=== PATIENT | female | born 1995 | race Caucasian/White ===

== ENCOUNTER 2019-08-25 12:07 | Emergency (ER) | payer OTHER, SELFPAY ==
[2019-08-25 12:18] VITALS: BP 120/67; PULSE 72; RESP 20; TEMP 36.9; O2SAT 100
--- NOTE | 2019-08-25 12:48 | ED.URI ---
HPI - URI/Sore Throat General Chief Complaint: Upper Respiratory Infection Stated Complaint: cough/sore throat/body aches Time Seen by Provider: 08/25/19 12:48 Source: patient and RN notes reviewed Mode of arrival: ambulatory Limitations: no limitations History of Present Illness HPI Narrative: 23-year-old female with history of asthma presents with fatigue, cough, fever, scratchy throat, nasal drainage, sinus pressure, body aches that started last night. Reports her live-in partner has influenza a and B. elicited complaint: cough Related Data Home Medications Medication Instructions Recorded Confirmed ProAir HFA 08/25/19 norgestimate-ethinyl estradiol tablet 08/25/19 [Tri-Sprintec (28)] Allergies Allergy/AdvReac Type Severity Reaction Status Date / Time amoxicillin Allergy Unknown Verified 08/23/15 18:38 clavulanic acid Allergy Unknown Verified 08/23/15 18:38 Penicillins Allergy Unknown Verified 08/23/15 18:38 Review of Systems Review of Systems: Narrative: CONSTITUTIONAL: Reports malaise, chills, sweats, fever. EYES: Denies visual changes, redness, or discharge. ENT: Reports rhinorrhea, congestion, and sore throat. Denies sinus pain CARDIOVASCULAR: Denies chest pain, palpitations, or edema. RESPIRATORY: Reports cough. Denies dyspnea. GASTROINTESTINAL: Denies abdominal pain, nausea, vomiting, diarrhea SKIN: Denies rash or itching. MUSCULOSKELETAL: Reports myalgia. NEUROLOGIC: Reports headache. All systems reviewed & are unremarkable except as noted in HPI and below PMFSH Comments At time of signature, agree with nursing past medical, surgical, social and family history. There is no relevant family history pertinent to the presenting complaint Exam Narrative: Exam Narrative: GENERAL: Well-appearing, well-nourished, and in no acute distress. HEAD: Normocephalic, atraumatic. EYES: PERRLA, conjunctivae clear, and EOMI. ENT: Nares clear, turbinates erythematous, clear discharge. Mucous membranes moist. TM pearly mg with dull light reflex bilaterally; no tragal tenderness. Oropharynx not erythematous without lesions. Tonsils not enlarged and without exudate, no drooling, no hoarseness, no trismus. NECK: Supple. No lymphadenopathy CHEST: Clear to auscultation, breath sounds equal. No wheezing, rhonchi, rales, or stridor. No respiratory distress, speaks in full sentences. HEART: Regular rate and rhythm. No murmur heard. Normal peripheral pulses. SKIN: Warm, dry, no rash. NEURO: Alert and oriented x3. PSYCH: Normal mood and affect Course Course Emergency Course: Patient is aware of diagnosis, understands and agrees to treatment plan. Anticipatory guidance given. Patient agrees to follow-up as directed and is aware of reasons to seek care at the emergency department. Portions of this record may have been created with voice recognition software Vital Signs Vital signs: Vital Signs Temperature 98.4 F 08/25/19 12:18 Pulse Rate 72 08/25/19 12:18 Respiratory Rate 20 08/25/19 12:18 Blood Pressure 120/67 08/25/19 12:18 Pulse Oximetry 100 08/25/19 12:18 Temperature 98.4 F 08/25/19 12:18 Pulse Rate 72 08/25/19 12:18 Respiratory Rate 20 08/25/19 12:18 Blood Pressure 120/67 08/25/19 12:18 Pulse Oximetry 100 08/25/19 12:18 Reviewed. MDM - URI/Sore Throat MDM Narrative Medical decision making narrative: Differential diagnosis considered: Strep pharyngitis, allergic rhinitis, upper respiratory tract infection, sinusitis, rhinosinusitis, nasopharyngitis. viral pharyngitis, otitis media, otitis externa, pneumonia, bronchitis, viral cough syndrome, viral syndrome, and influenza. Exam findings show no acute concerns or changes; patient is non-toxic appearing and is in no distress. Patient is appropriate for outpatient treatment and follow-up. Lab Data Attestation: I reviewed the patient's lab results. Labs: Influenza A Screen Negative Reference Range: Negative
== END 2019-08-25 13:05 | disposition home or self-care (01) ==
PROVIDERS: Emergency Provider Nurse Practitioner
DX: B34.9 Viral infection, unspecified (principal); J45.909 Unspecified asthma, uncomplicated; Z20.828 Contact with and (suspected) exposure to other viral communicable diseases
CPT/HCPCS: 87804; 99213; G0463

== ENCOUNTER 2019-08-28 16:30 | Emergency (ER) | payer OTHER, SELFPAY ==
--- NOTE | 2019-08-28 16:44 | ED.GENADULT ---
HPI - General Adult General Chief complaint: Upper Respiratory Infection Stated complaint: COLD SYMPTOMS Time Seen by Provider: 08/28/19 17:23 Source: RN notes reviewed Mode of arrival: ambulatory Limitations: no limitations History of Present Illness HPI narrative: This patient had a one-week history of a cough which is been nonproductive. She is also had yellow-green nasal drainage with postnasal drip. She was at this facility 3 days ago and tested negative for influenza, but her boyfriend did test positive for influenza and so therefore she was given a prescription for Tamiflu 75 mg 1 twice daily for 5 days. Despite that she has become worse. She has had a fever up to 100 degrees this morning is taken Tylenol which does bring it down. OTC cough medicine helps with the cough and nasal drainage. She has had no chest pain no shortness of breath. She has not had any ear pain or drainage from the ears. There is been no nausea, no vomiting, no diarrhea. She has had no hematuria, no dysuria, no pyuria. She said no other exposure to anyone with strep throat, mono, influenza, bronchitis, pneumonia that she is aware of. She has had a mild sore throat, not severe. She has had no rashes and has not been traveling. Related Data Home Medications Medication Instructions Recorded Confirmed ProAir HFA 08/25/19 norgestimate-ethinyl estradiol 1 tablet PO DAILY 08/25/19 08/28/19 [Tri-Sprintec (28)] Allergies Allergy/AdvReac Type Severity Reaction Status Date / Time amoxicillin Allergy Unknown Hives Verified 08/28/19 17:04 clavulanic acid Allergy Unknown Hives Verified 08/28/19 17:04 Penicillins Allergy Unknown Hives Verified 08/28/19 17:04 Review of Systems Review of Systems: Narrative: CONSTITUTIONAL: Denies fever, chills, or sweats. Noncontributory except as pertains to the past medical history and history the present illness. EYES: Denies visual changes, redness, or discharge. ENT: Denies rhinorrhea, congestion, sore throat, or otalgia. CARDIOVASCULAR: Denies chest pain, palpitations, or edema. RESPIRATORY: Denies cough or dyspnea. GASTROINTESTINAL: Denies abdominal pain, nausea, vomiting, or diarrhea. GENITOURINARY: Denies dysuria or hematuria. SKIN: Denies rash or itching. MUSCULOSKELETAL: Denies back pain, joint pain, or myalgia. NEUROLOGIC: Denies headache, numbness, or weakness. PSYCHIATRIC: Denies anxiety or depression. Patient PMFSH Comments At time of signature, I have reviewed and agree with nursing past medical, surgical, social, and family history.Please see nursing chart for further information. There is no relevant family history pertinent to the presenting complaint. Exam Narrative: Exam Narrative: GENERAL: Well-appearing, well-nourished, and in no acute distress. HEAD: Normocephalic, atraumatic. EYES: PERRLA and EOMI. EARS: TM's clear bilaterally and the canals are clear. NOSE: Nares have edematous mucosa line with purulent rhinorrhea and purulent postnasal drip. THROAT:Mucous membranes moist.Oropharynx normal without erythema or exudates. No adenopathy of the neck, supraclavicular, axillary, or inguinal areas. NECK: Supple. No adenopathy of the neck, supraclavicular, axillary, or inguinal areas. RESPIRATORY: No respiratory distress. Airway patent. Respirations non-labored. The lungs have rhonchi in the upper and in the midlung hernandez, but not the bases. There are no wheezes, no rales, no retractions, no use accessory muscles or respirations. Patient is not cyanotic and not dyspneic. HEART: Regular rate and rhythm. No murmur heard. Normal peripheral pulses. ABDOMEN: Soft, nontender, nondistended, normal active bowel sounds.No masses. No rebound or guarding, No organomegaly. EXTREMITIES: No clubbing/cyanosis/ edema. Normal strength & range of motion. SKIN: Warm, dry.Normal color. There are no skin lesions or skin rashes. Patient is well-nourished well-hydrated has moist mucous membranes and no tenting of the skin
[2019-08-28 16:56] VITALS: BP 116/75; PULSE 99; RESP 20; TEMP 37.7; O2SAT 100
== END 2019-08-28 17:34 | disposition home or self-care (01) ==
PROVIDERS: Emergency Provider Family Medicine
DX: J40 Bronchitis, not specified as acute or chronic (principal); J01.10 Acute frontal sinusitis, unspecified; J45.909 Unspecified asthma, uncomplicated
CPT/HCPCS: 99213; G0463

== ENCOUNTER 2023-04-07 10:11 | Emergency (ER) | payer OTHER, SELFPAY ==
--- NOTE | ~2023-04-07 | XR_ITS ---
XR ankle RT min 3V DATE: 04/07/2023 10:29 INDICATION: Injury, ankle pain TECHNIQUE: 4 views COMPARISON: None FINDINGS: Generalized soft tissue swelling. No fracture or dislocation the ankle or disruption of the ankle mortise is detected. No periosteal reaction or bone destruction. IMPRESSION: Soft tissue swelling Reviewed, dictated and finalized at location A. IMPRESSION: Soft tissue swelling
[2023-04-07 10:15] VITALS: BP 135/93; PULSE 86; RESP 18; TEMP 37.1; O2SAT 99
--- NOTE | 2023-04-07 10:18 | ED.LOWEXIN ---
HPI - Extremity Injury (Lower) General Chief Complaint: Extremity Injury, Lower Stated Complaint: Injured right ankle Time Seen by Provider: 04/07/23 10:19 Source: patient Mode of arrival: ambulatory Limitations: no limitations History of Present Illness HPI Narrative: Juvenal is a 27-year-old male patient presenting to the clinic today with complaints of a right ankle injury that she sustained last night. She reports that she rolled her ankle off the ledge and inverted it. She reports most painful when ambulating. Is painful turning ankle inward and outward. Related Data Home Medications Medication Instructions Recorded Confirmed No Home Medications 04/07/23 04/07/23 Allergies Allergy/AdvReac Type Severity Reaction Status Date / Time amoxicillin Allergy Unknown Hives Verified 04/07/23 10:24 clavulanic acid Allergy Unknown Hives Verified 04/07/23 10:24 Penicillins Allergy Unknown Hives Verified 04/07/23 10:24 Review of Systems Review of Systems: Pertinent positives per HPI. Patient denies any fever, chills, rash, headache, visual changes, dizziness, cough, runny nose, sore throat, shortness of breath, chest pain, palpitations, nausea, vomiting, diarrhea, constipation, abdominal pain, or any urinary issues. PMFSH Comments At the time of my signature, I reviewed and agree with the nursing past medical, surgical, social, and family history. There is no relevant family history pertinent to the patient complaint. Exam Narrative: General: Well-developed, obese, in no apparent distress Head: Normocephalic, atraumatic. Cardio: Regular rate and rhythm, s1 and s2 normal, no murmur appreciated. Resp: Clear to auscultation bilaterally, no rhonchi, rales, wheezing or rubs. Musculoskeletal: No deformity, tender to palpation over the medial and the lateral ankle, mild swelling and bruising noted over the lateral ankle, pain with valgus and varus testing, good strength without pain with plantar and dorsal flexion, grossly normal range of motion, muscle strength strong and equal, peripheral pulse strong, no cyanosis, normal gait and station Course Course Emergency Course: Portions of this record may have been created with voice recognition software. Level of Care: Express Care Visit Vital Signs Vital signs: Vital signs reviewed MDM - Extremity Injury (Lower) MDM Narrative Medical decision making narrative: At the time of visit patient is resting comfortably on the exam table. X-ray of the right ankle was performed and was negative for any sign of fracture or malalignment. I suspect patient has right ankle sprain. Supportive measures were discussed with the patient she voiced understanding discharge instructions agrees to treatment plan. Differential Diagnosis Differential diagnosis: Likely ankle sprain and strain and ankle fracture Imaging Data Radiologist's impression: [facility] [address] [place] [address] [place] [address] XRay Report Signed Patient: Juvenal Garcia : 1995 MR#: [id number] Age/Sex: 27 / F Acct:[id number] Loc: [facility]? ? ADM Date: 04/07/23Attending Dr: Ordering Physician: Houston Nix APRN Date of Service: 04/07/23 Procedure(s): XR ankle RT min 3V Accession Number(s): [id number] cc: Houston Nix APRN; [employer] TECHNICIAN PHYSICIAN~ XR ankle RT min 3V DATE: 04/07/2023 10:29 INDICATION: Injury, ankle pain? TECHNIQUE: 4 views? COMPARISON: None? FINDINGS: Generalized soft tissue swelling. No fracture or dislocation the ankle or disruption of the ankle mortise is detected. No periosteal reaction or bone destruction.? IMPRESSION: Soft tissue swelling? Reviewed, dictated and finalized at location A. Dictated By:? Sancho Perera MD? 04/07/23 1032 Signed By:? ? <Electronically
== END 2023-04-07 10:52 | disposition home or self-care (01) ==
PROVIDERS: Emergency Provider Nurse Practitioner Family
DX: S93.401A Sprain of unspecified ligament of right ankle, initial encounter (principal); X50.9XXA Other and unspecified overexertion or strenuous movements or postures, initial encounter; J45.909 Unspecified asthma, uncomplicated
CPT/HCPCS: 73610; 99213; G0463

== ENCOUNTER 2023-04-08 17:45 | Emergency (ER) | payer OTHER, SELFPAY ==
--- NOTE | ~2023-04-08 | XR_ITS ---
EXAMINATION: XR foot RT min 3V DATE: 04/08/2023 19:44 INDICATION: Right foot pain. Fall. TECHNIQUE: 4 views of right foot were obtained. COMPARISON: Right ankle radiographs 04/07/2023 FINDINGS: Bone alignment is normal. There is a nondisplaced avulsion fracture of anteroinferior tip o f fibula. Joint spaces are normal. IMPRESSION: 1. Nondisplaced avulsion fracture of anteroinferior tip of fibula. Reviewed, dictated and finalized at location E.
[2023-04-08 18:37] VITALS: BP 147/93; PULSE 86; RESP 18; TEMP 36.8; O2SAT 100
--- NOTE | 2023-04-08 19:34 | ED.LOWEXIN ---
HPI - Extremity Injury (Lower) General Chief Complaint: Extremity Injury, Lower Stated Complaint: ankle injury Time Seen by Provider: 04/08/23 19:18 Source: patient Mode of arrival: ambulatory Limitations: no limitations History of Present Illness HPI Narrative: This is a 27 year old female that presents to the ER for right ankle and foot pain. Reports an injury 2 days ago. Reports rolling her ankle. Reports she was evaluated for this yesterday at urgent care. Had x-rays of her ankle that was negative. She was placed in [place] wrap. She has continued to walk on the foot and has had continued swelling and pain. Denies decreased range of motion or numbness. Related Data Allergies Allergy/AdvReac Type Severity Reaction Status Date / Time amoxicillin Allergy Unknown Hives Verified 04/08/23 18:59 clavulanic acid Allergy Unknown Hives Verified 04/08/23 18:59 Penicillins Allergy Unknown Hives Verified 04/08/23 18:59 Review of Systems Review of Systems: CONSTITUTIONAL: Denies fever MUSCULOSKELETAL: Reports joint pain, and myalgia. NEUROLOGIC: Denies numbness, or weakness. All systems reviewed & are unremarkable except as noted in HPI and below PMFSH Past Medical History Medical History (Updated 04/08/23 @ 20:11 by Katerina Can PA-C) No active medical problems Social History Social History (Updated 04/08/23 @ 19:36 by Katerina Can PA-C) Smoking status: Never smoker Exam Narrative: GENERAL: Well-appearing, well-nourished, and in no acute distress. HEAD: Normocephalic, atraumatic. EYES: EOMI. EXTREMITIES: Normal range of motion. Mild edema about the right foot and ankle. Normal sensation. Normal capillary refill. Normal DP pulses SKIN: Warm, dry, no rash. NEURO: No focal deficits. Alert and oriented x3. PSYCH: Normal mood and affect Course Course Emergency Course: Patient was updated on work-up and agrees with plan of care Vital Signs Vital signs: Vital Signs Temperature 98.2 F 04/08/23 18:37 Pulse Rate 86 04/08/23 18:37 Respiratory Rate 18 04/08/23 18:37 Blood Pressure 147/93 H 04/08/23 18:37 Pulse Oximetry 100 04/08/23 18:37 Oxygen Delivery Room Air 04/08/23 18:37 Temperature 98.2 F 04/08/23 18:37 Pulse Rate 86 04/08/23 18:37 Respiratory Rate 18 04/08/23 18:37 Blood Pressure 147/93 H 04/08/23 18:37 Pulse Oximetry 100 04/08/23 18:37 Oxygen Delivery Room Air 04/08/23 18:37 Procedures Orthopedic Splinting/Casting Injury #1: Splinting/Casting Date: 04/08/23 Splinting/Casting Time: 20:06 Side: right Lower Extremity Injury Location: foot Lower Extremity Immobilizer: posterior splint Splint: customized in ED OCL: short leg Pre-Procedure Neuro Vascular Exam: normal Post-Procedure Neuro Vascular Exam: normal Other Orthopedic Equipment: crutches MDM - Extremity Injury (Lower) MDM Narrative Medical decision making narrative: Patient presents to the emergency department for right foot and ankle pain after an injury 2 days ago. Patient is neurovascularly intact. Was initially evaluated at urgent care with negative x-rays of her ankle. Right foot x-ray today shows a nondisplaced avulsion fracture at the tip of the fibula. Patient placed in a short leg posterior and given crutches. Will be given follow-up with orthopedics. She was given warnings to return to the ER Differential Diagnosis Differential diagnosis: Likely ankle sprain and strain, ankle fracture and other (Foot fracture, foot sprain) Medical Records Attestation: I reviewed the patient's medical records. Imaging Data Radiologist's impression: ITS Impressions Foot X-Ray 04/08/23 19:44 IMPRESSION: 1. Nondisplaced avulsion fracture of anteroinferior tip of fibula. Critical Care Time Critical Care Time Critical Care Time: No Discharge Plan Discharge Clinical Impression: Closed right fibular fracture
[2023-04-08] MEDS: IBUPROFEN 600 MG TABLET PO (19:48)
[2023-04-08 20:41] VITALS: BP 132/76; PULSE 69; RESP 18; O2SAT 100
== END 2023-04-08 20:53 | disposition home or self-care (01) ==
PROVIDERS: Emergency Provider Physician Assistant
DX: S82.831A Other fracture of upper and lower end of right fibula, initial encounter for closed fracture (principal); X50.9XXA Other and unspecified overexertion or strenuous movements or postures, initial encounter
CPT/HCPCS: 29515; 73630; 99284; A9270